=== PATIENT | female | born 1985 | race Caucasian/White ===

== ENCOUNTER 2019-07-13 15:05 | Emergency (ER) | payer MEDICAID, OTHER ==
[~2019-07-13] VITALS: Ht 172.7 cm; Wt 99.8 kg
[2019-07-13 15:31] VITALS: BP 113/54
--- NOTE | 2019-07-13 16:30 | Emergency Room Report ---
History of Present Illness General Chief Complaint: Skin Rash/Abscess Source: Patient Present Illness HPI 34-year-old female presents to the emergency department complaining of itchy rash on the right forearm that has been progressing up towards the elbow x2 days in addition to new onset rash on the left lower abdomen x1 day. Patient reports history of scabies in the past. She denies pain. Pt. denies fevers, chills or swollen tender lymph nodes. Denies lesions/rashes elsewhere on the body. Denies new medications or body washes or creams. Denies swelling of the lips, tongue , throat or airway. Denies wheezing, or shortness of breath. Denies recent travel, recent illness or ill contacts. denies blisters, oral lesions, or sloughing of the skin. She denies or suspicion of . COVID-19 risk:Contact w/high r: No COVID-19 risk:Travel to affect: No Has patient experienced bradford: No Allergies: Coded Allergies: CEPHALEXIN (Verified Allergy, Unknown, 07/13/19) HALOPERIDOL (Verified Allergy, Unknown, 07/13/19) Patient History Past Medical History: see triage record Past Surgical History: none Pertinent Family History: none Now: No Reviewed Nursing Documentation: PMH: Agreed; PSxH: Agreed Nursing Documentation-PMH Past Medical History: No Stated History Review of Systems All Other Systems: negative except mentioned in HPI Physical Exam Vital Signs Date Time Temp Pulse Resp B/P (MAP) Pulse Ox O2 Delivery O2 Flow Rate FiO2 07/13/19 15:12 98.8 90 16 116/76 (89) 96 Room Air Sp02 EP Interpretation: reviewed, normal General Appearance: no apparent distress, alert, GCS 15, non-toxic Head: normocephalic, atraumatic Eyes: bilateral eye normal inspection, bilateral eye PERRL ENT: hearing grossly normal, no angioedema, normal voice Neck: full range of motion Respiratory: chest non-tender, lungs clear, normal breath sounds, no respiratory distress, no wheezing, speaking full sentences Cardiovascular #1: regular rate, rhythm Gastrointestinal: non tender, soft, other - Small localized area on the ant. lower abdomen of discrete erythematous papules that have what appears to be a linear distribution with excoriations. No blisters or vesicles. Rectal: deferred Genitourinary: normal inspection Musculoskeletal: normal range of motion, gait/station normal, non-tender Neurologic: alert, motor strength/tone normal, oriented x3, sensory intact, responsive, speech normal Psychiatric: judgement/insight normal Skin: rash - Small localized area on the ant. lower abdomen and medial right wrist/forearm of discrete erythematous papules that have what appears to be a linear distribution with excoriations. No blisters or vesicles. Lymphatic: no adenopathy Medical Decision Making PA Attestation Dr. Jim Is my supervising Physician whom patient management has been discussed with. Diagnostic Impression: Primary Impression: Rash and other nonspecific skin eruption ER Course 34-year-old female presents to the emergency department complaining of itchy rash on the right forearm that has been progressing up towards the elbow x2 days in addition to new onset rash on the left lower abdomen x1 day. Patient reports history of scabies in the past. She denies pain. Pt. denies fevers, chills or swollen tender lymph nodes. Denies lesions/rashes elsewhere on the body. Denies new medications or body washes or creams. Denies swelling of the lips, tongue , throat or airway. Denies wheezing, or shortness of breath. Denies recent travel, recent illness or ill contacts. denies blisters, oral lesions, or sloughing of the skin. She denies or suspicion of . Ddx considered but are not limited to cellulitis, scabies, shingles, varicella, dermatitis, urticaria, eczema, tinea, viral exanthem, SJS Vital signs: are WNL, pt. is afebrile H&PE are most consistent with suspected scabies due to linear distribution and progressive nature, no signs of cellulitis. ORDERS: none required at this time, the diagnosis is clinical ED INTERVENTIONS: None required at this time. DISCHARGE: At this time pt. is stable for d/c to home. Will provide printed patient care instructions, and any necessary prescriptions. Care plan and follow up instructions have been discussed with the patient prior to discharge. Last Vital Signs Date Time Temp Pulse Resp B/P (MAP) Pulse Ox O2 Delivery O2 Flow Rate FiO2 07/13/19 15:31 98.8 76 18 113/54 99 Room Air Status: improved Disposition: HOME, SELF-CARE Condition: Stable Scripts Hydrocortisone (CORTIZONE-10) 28 Gm Oint...g. 1 APPLIC TP BID, #28 GM Prov: Monique Burton 07/13/19 Permethrin* (ELIMITE*) 60 Gm Cream..g. 1 APPLIC TOPIC ONCE, #60 GM 0 Refills Apply cream from head to toe; leave on for 8-14 hours before washing off with water; may reapply in 1 week if live mites appear. Prov: Monique Burton 07/13/19 Diphenhydramine Hcl (BENADRYL ALLERGY) 25 Mg Tablet 25-50 MG PO Q6HR, #30 TAB Prov: Monique Burton 07/13/19 Referrals: Elsa Valente [facility]. [facility] Patient Instructions: Rash, Scabies, Pediatric Additional Instructions: Take medications as directed. !!Do not drink alcohol, drive, or operate heavy machinery while taking Benadryl as this may cause drowsiness. Follow up with a Primary Care Provider in 3-5 days, even if your symptoms have resolved. --Please review list of primary care clinics, if you do not already have a primary care provider Return sooner to ED if new symptoms occur, or current symptoms become worse. - Please note that this Emergency Department Report was dictated using [employer] technology software, occasionally this can lead to erroneous entry secondary to interpretation by the dictation equipment. Monique Burton Jul 13, 2019 16:30
[2019-07-13] MEDS ORDERED: CORTIZONE-1028 G2 TP (16:32)
[2019-07-13] MEDS ORDERED: PERMETHRIN60 GM TOPIC (16:32)
[2019-07-13] MEDS ORDERED: BENADRYL ALLERG25 M1 PO (16:32)
[2019-07-13 16:42] VITALS: BP 114/58
== END 2019-07-13 16:42 | disposition home or self-care (01) ==
LOC: EMR 16:07
DX: R21 Rash and other nonspecific skin eruption (principal); Z88.8 Allergy status to other drugs, medicaments and biological substances
CPT/HCPCS: 99282